=== PATIENT | female | born 1990 | race Caucasian/White ===

== ENCOUNTER 2016-10-09 11:54 | Emergency (ER) | payer MEDICARE, OTHER ==
[2016-10-09 13:59] LABS: HEMOGLOBIN 12.8 gm/dl (12.3-15.3); RED BLOOD COUNT 4.17 M/UL (4.00-5.10); WHITE BLOOD COUNT 12.2 K/UL (4.5-11.0)
[2016-10-09 14:17] LABS: BUN/CREATININE RATIO 16 (0-10)
== END 2016-10-09 18:35 | disposition home or self-care (01) ==
LOC: ER1 11:54
PROVIDERS: Emergency Medicine
DX: R07.9 Chest pain, unspecified (principal); R06.02 Shortness of breath; R42 Dizziness and giddiness; R55 Syncope and collapse; G40.909 Epilepsy, unspecified, not intractable, without status epilepticus; Z79.899 Other long term (current) drug therapy
CPT/HCPCS: 36415; 71020; 80053; 82550; 82553; 83690; 83874; 84484; 84703; 85025; 85379; 85610; 85730; 93005; 99285; J7050; Q9963